=== PATIENT | male | born 1985 | race Caucasian/White ===

== ENCOUNTER 2020-08-30 18:12 | Emergency (ER) | payer MEDICAID, SELFPAY ==
[2020-08-30 18:25] VITALS: BP 170/100; BP 180/90; PULSE 100; PULSE 120; RESP 20; TEMP 36.1; O2SAT 98; BMI 22.9
--- NOTE | 2020-08-30 18:32 | ED.PSYCH ---
HPI - Psych General Chief Complaint: Anxiety Stated Complaint: crisis Time Seen by Provider: 08/30/20 18:30 Source: patient and police Mode of arrival: EMS Limitations: no limitations History of Present Illness HPI Narrative: Patient very anxious picked up by police for patient bagging for food bothering people on the street on arrival in the ER also patient was asking for high-protein hot food talking illogical patient denies hallucination no suicidal ideation patient is very noncooperative refused to answer Related Data Allergies Allergy/AdvReac Type Severity Reaction Status Date / Time Sulfa (Sulfonamide Allergy Unknown Verified 08/30/20 18:34 Antibiotics) Review of Systems Review of Systems: Yes Unobtainable due to mental condition (Patient refused to answer) PMFSH Past Medical History Medical History Anxiety Anxiety Insomnia Physical Exam Const: Other: Talking too much in the ER asking for the food denies any complaint General: comfortable, no acute distress, anxious and poor hygiene Chest: Chest palpation & inspection: normal inspection of the chest Resp: Effort & Inspection: normal respiratory effort Cardio: Rate: regular rate Rhythm: regular rhythm Heart sounds: S1 normal heart sound present and S2 normal heart sound present GI: Inspection: Yes normal to inspection Palpation (GI): Soft to palpation Neuro: General: gait normal and no focal motor deficits Psych: Appearance: disheveled Speech and movement: Psychomotor agitation in speech present Affect: Labile affect present Attitude: Avoids eye contact (attititude/behavior) Thought process: Illogical thought process present Insight: Limited insight present (Psych) Judgement: Limited judgement present (Psych) Discharge Plan Discharge Clinical Impression: Anxiety Patient Disposition: Home, Self-Care Instructions: Anxiety (ED) Additional Instructions: Follow-up with therapist
--- NOTE | 2020-08-30 18:50 | PC.NURSE ---
PT CONTINUED TO VERBALLY ABUSE THE STAFF. YELLING AT STAFF. YOU'RE DOING NOTHING FOR ME . PT WAS EVALUATED BY DR GIPSON. PT CONTINUES TO DENY SI/HI/. WHEN ASKED WHAT WE COULD DO TO HELP HIM PT YELLED FUCKING FEED ME . PT WAS GIVEN MULTIPLE SANDWICHES AND DRINKS. PT WAS PROVIDED USE OF THE BATHROOM TO CLEAN UP AT HIS REQUEST. PROVIDER FELT PATIENT WAS SAFE TO BE DISCHARGED AND PATIENT DID NOT WANT TO STAY. PT TOOK MULTIPLE SNACKS WITH HIM WELL. PT ESCORTED OUT OF ER BY SECURITY.
== END 2020-08-30 19:08 | disposition home or self-care (01) ==
LOC: HO.ED 18:41
PROVIDERS: Emergency Provider Internal Medicine; PCP Internal Medicine
DX: F41.9 Anxiety disorder, unspecified (principal)
CPT/HCPCS: 99282; 99283

== ENCOUNTER 2020-09-02 11:22 | Emergency (ER) | payer MEDICAID, SELFPAY ==
[2020-09-02 11:24] VITALS: BP 197/93; PULSE 100; O2SAT 100
--- NOTE | 2020-09-02 11:24 | ED.OVERDOSE ---
HPI - Overdose General Chief Complaint: ETOH/Substance Use Stated Complaint: od Time Seen by Provider: 09/02/20 11:24 Source: patient and EMS Mode of arrival: EMS Limitations: no limitations History of Present Illness HPI Narrative: denies SI, no trauma accidental heroin overdose complaint: accidental overdose Onset (ago): minute(s) Timing confirmed by: other Context: Accidental Overdose: wanted to get high Treatments Prior to Arrival: narcan (4mg IN was not bagged) Related Data Allergies Allergy/AdvReac Type Severity Reaction Status Date / Time Sulfa (Sulfonamide Allergy Unknown Verified 08/30/20 18:34 Antibiotics) Review of Systems Review of Systems: ROS unable to be obtained due to patient being uncooperative [facility] Past Medical History Attestation statement: The following information was validated with the patient. Medical History Anxiety Anxiety Insomnia Social History Social History (Updated 09/02/20 @ 11:32 by Dana Hidalgo DO) Patient Tobacco Use Status: Tobacco use Unknown Substance Use Type: Opiates Advance Directives: Yes Advance Directives Information Provided: Yes Advance Directives on File: No Physical Exam Vital Signs: Vital Signs: Last Vital Signs Temp 99 F 09/02/20 11:26 Pulse 98 09/02/20 11:26 Resp 14 09/02/20 11:26 BP 161/102 H 09/02/20 11:26 Pulse Ox 96 09/02/20 11:26 Body Mass Index 23.1 Appearance: Alert. Oriented X3. No acute distress. Agitated Eyes: Pupils equal, round and reactive to light. ENT: Pharynx normal. Atraumatic Neck: Normal inspection. Neck supple. CVS: Normal heart rate and rhythm. Pulses normal. Respiratory: No respiratory distress. Breath sounds normal. Abdomen: Soft and nontender. Skin: Skin warm and dry. Normal skin color. Extremities: No lower extremity edema. Neuro: Oriented X 3. No motor deficit. No sensory deficit. MDM - Overdose MDM Narrative Medical decision making narrative: 35 yo male alert and oriented x 3 no trauma, GCS 15, given IN narcan here refusing to stay - attempted to persuade him with lunch, home narcan, discussion with recovery coaches and help with a ride, suboxone clinic, he refuses to stay and has no SI, I cannot section him, he is aware he could re overdose he states he carries narcan in his bag which is on his person Discharge Plan Discharge Clinical Impression: Opiate overdose Qualifiers: Encounter type: initial encounter Injury intent: accidental or unintentional Qualified Code(s): T40.601A - Poisoning by unspecified narcotics, accidental (unintentional), initial encounter Patient Disposition: Home, Self-Care Instructions: Against Medical Advice (ED), Opioid Use Disorder (ED) Additional Instructions: you were offered narcan, detox, recovery coaches but refused, you are welcome to return at any time, we wanted you to stay in the ED for 45 minutes. Interventions: ED Discharge Assessment Last Done: 09/02/20 11:51 Discharge Date/Time: 09/02/20 11:52
[2020-09-02 11:26] VITALS: BP 161/102; PULSE 98; RESP 14; TEMP 37.2; O2SAT 96; BMI 23.1
--- NOTE | 2020-09-02 11:31 | PC.NURSE ---
SEEN BY DR GHOTRA, PT IS REFUSING TO SPEAK WITH RECOVERY COACHES REGARDING DETOX, SUBOXONE
--- NOTE | 2020-09-02 11:38 | MHC.RECOVSUP ---
? Reason for consult:Continuity of care. o Current location: [facility] [place] o Identified substance use concern: Heroin - Overdose - Withdrawal - ? Intervention:Refused services ? Plan: o ? Additional information: Patient did not want to talk to anyone. Patient leaving AMA. Patient refused services.
== END 2020-09-02 11:52 | disposition home or self-care (01) ==
PROVIDERS: Emergency Provider Emergency Medicine; PCP Internal Medicine
DX: T40.601A Poisoning by unspecified narcotics, accidental (unintentional), initial encounter (principal); Y92.9 Unspecified place or not applicable
CPT/HCPCS: 99283